=== PATIENT | female | born 1950 | race Caucasian/White ===

== ENCOUNTER 2017-01-25 22:05 | Emergency (ER) | payer MEDICARE ==
[~2017-01-25] VITALS: Ht 154.9 cm; Wt 70.0 kg
[~2017-01-25 22:05] MED LIST: ACYCLOVIR800 MG PO; ALBUTEROL2.5 MG/31 IN; B COMPLETE PO; B12 LIQUID; BENZONATATE200 MG PO; BIAXIN XL500 MG OR; CALCIUM CHEL1 CAP OR; CLARITHROMYC500 M1 OR; CLARITHROMYC500 MG PO; CLINDAMYCIN150 MG PO; CLINDAMYCIN300 MG PO; CULTURELL1; CYMBALTA60 MG PO; EVISTA60 MG OR; EVOXAC30 MG PO; FLOVENT DISK50 MCG IN; FOLIC ACID1 MG PO; HYDROCODONE/ACE1 TAB PO; LORTAB 5/3255 MG PO; LYRICA100 MG PO; LYRICA200 MG PO; MEDDOSEPAK PO; METHOTREXATE25 MG/ML; MOBIC15 M1 PO; NASACORT A55 MCG/ACT; NEURONTIN100 MG PO; NEXIUM40 M1 PO; NORCO1 TA2 PO; ROBITUSSIN AC10 ML PO; SINGULAIR10 MG OR; SLOW; SLOW FE142 MG OR; SOLU-MEDROL125 MG IM; TEGRETOL PO; TESSALON200 MG PO; TOPAMAX50 MG PO; VAGIFEM10 MCG VA; VALTREX500 MG PO; ZITHROMAX250 MG PO; ZITHROMAX500 MG PO; ZPAK OR; ZPAK PO; ZYRTEC-D AL1 PO; ZYRTEC10 MG PO; [UNRECOGNIZED DRUG - OTHER]
[2017-01-25 22:58] VITALS: BP 144/77
== END 2017-01-25 23:00 | disposition home or self-care (01) ==
LOC: ED 22:05
DX: S91.115A Laceration without foreign body of left lesser toe(s) without damage to nail, initial encounter (principal); M32.9 Systemic lupus erythematosus, unspecified; M35.00 Sjogren syndrome, unspecified; J45.909 Unspecified asthma, uncomplicated; I34.1 Nonrheumatic mitral (valve) prolapse; W25.XXXA Contact with sharp glass, initial encounter